=== PATIENT | male | born 1955 | race Caucasian/White ===

== ENCOUNTER → 2024-08-08 10:20 | Outpatient (REF) | payer MEDICARE, OTHER, SELFPAY | LOC: RAD 10:20 | PROVIDERS: ATTENDING PHYSICIAN Nurse Practitioner Family; FAMILY PHYSICIAN Internal Medicine | DX: F17.210 Nicotine dependence, cigarettes, uncomplicated (principal) | CPT/HCPCS: 71271 ==

== ENCOUNTER 2024-11-16 04:52 | Observation (INO) | payer MEDICARE, OTHER, SELFPAY ==
[2024-11-15 21:40] VITALS: BP 152/91
[2024-11-15 22:10] LABS: % Basophils 0.4 % (0-2); % Eosinophils 0.5 % (0-6); % Immature Granulocytes 0.7 % (0-0.5); % Lymphocytes 12.4 % (20.5-51.1); % Monocytes 7.5 % (1.7-9.3); % Neutrophils 78.5 % (42.2-75.2); Absolute Immature Granulocytes 0.1 10^3/uL (0-0.05); Absolute Monocytes 0.6 10^3/uL (0.1-0.6); Absolute Neutrophils 6.5 10^3/uL (1.4-6.5); Hematocrit 45.2 % (39.0-52.0); Hemoglobin 15.3 g/dL (13.0-18.0); Mean Corp Hgb Conc. 33.8 g/dL (33.0-37.0); Mean Corpuscular Hgb 31.5 pg (27.0-31.0); Mean Corpuscular Volume 93.2 fL (80.0-94.0); Mean Platelet Volume 8.8 fL (7.4-10.4); Nucleated Red Blood Cells % 0 % (-); Platelet Count 174 10^3/uL (130-400); Red Blood Cell Count 4.85 10^6/uL (4.70-6.10); Red Cell Dist. Width 13.3 % (11.5-14.5); White Blood Cell Count 8.2 10^3/uL (4.8-10.8)
[2024-11-15 22:23] LABS: ALT (SGPT) 25 U/L (0-50); AST (SGOT) 24 U/L (17-59); Albumin 4.1 g/dl (3.5-5.0); Alkaline Phosphatase 102 U/L (38-126); Blood Urea Nitrogen 19 mg/dl (9-20); COVID-19 Antigen Negative (Negative); Calcium 9.1 mg/dl (8.4-10.2); Carbon Dioxide 28 mmol/L (22-30); Chloride 103 mmol/L (98-107); Glucose 104 mg/dl (70-99); Potassium 4.2 mmol/L (3.5-5.1); Sodium 137 mmol/L (135-145); Total Bilirubin 0.7 mg/dl (0.2-1.3); Total Protein 6.5 g/dl (6.3-8.2); eGFR > 60.00
[2024-11-15 22:53] VITALS: BMI 24.4
[2024-11-15] MEDS: XOPENEX 1.25 MG INHALANT SOLUTION INH (23:10)
[2024-11-15 23:13] VITALS: BP 123/80
[2024-11-16] VITALS (9 sets, daily range): BP systolic 120–143; BP diastolic 60–89; BMI 23.9
[2024-11-16] MEDS: XOPENEX 1.25 MG INHALANT SOLUTION INH ×3 (01:06→14:07)
[2024-11-16] MEDS: ATROVENT NEBULES 0.5 MG INH (01:06)
[2024-11-16] MEDS: SOLU-MEDROL PF 125 MG IV (01:06)
--- NOTE | 2024-11-16 01:25 | ED.GENMED ---
History of Present Illness
General
Chief Complaint: Breathing Problem
Source: patient
Exam Limitations: none
Time Seen by Provider: 11/16/24 00:20
Nursing documentation reviewed up to this point in time: agreed with
History of Present Illness
History of Present Illness:
68-year-old male with past medical history of COPD, hypertension, hyperlipidemia, atrial fibrillation, hypothyroidism who presents to the emergency department for evaluation of shortness of breath. Of note symptoms have been ongoing for over a
month�he was admitted at [facility] in mid October for influenza reportedly; he says he returned in late October was admitted for 5 days for pneumonia (discharged 11/02 per ). He says he left [place] on oxygen and has been wearing 2 to
3 L at home. He says over the past 2 weeks he has had increased shortness of breath and hacking cough productive of dark sputum. He says that his oxygen requirement has increased he is now on 4 L at home. Despite this his oxygen saturations have
been in the 88-90 range over the past few days. He has not had any fevers or chills. He has not had any swelling or pain in the legs. Denies any chest pain. Denies any GI symptoms. Denies any other complaints.
Past History
Past History
ED Past Medical History: COPD and Hypercholesterolemia
ED Past Surgical History: Orthopedic and Urological
Social History
Tobacco: Smoker
Personal:
Living: with family
Employment: Disabled
Family History
Family History: Negative Early CAD
Review of Systems
Review of Systems
All Other Systems: ROS reviewed and negative except as documented in HPI and ROS
Constitutional: Denies fever or chills
Respiratory: Reports cough and trouble breathing
Cardiac: Denies chest pain or palpitations
ABD/GI: Denies abdominal pain, nausea, vomiting or diarrhea
: Denies flank pain
Musculoskeletal: Denies edema, neck pain or back pain
Neurological: Denies headache
Phy Exam
Physical Exam
Physical Exam:
General: Awake, alert, oriented x3; no acute distress
Head: Normocephalic, atraumatic
Eyes: Conjunctiva normal, EOMI
Throat: Airway intact, handling secretions
Neck: Trachea midline, no JVD
Lungs: Patient has scattered wheezing bilaterally; tachypnea with respiratory rate mid to high 30s but no evidence of accessory muscle use; pulse ox 94% on 2 L nasal cannula
Heart: Regular rate and rhythm, no murmurs, gallops, or rubs
Abd: Soft, non distended, nontender
Neuro: No gross deficits
Extremities: No edema in extremities, equal pulses in all extremities
Scores
Heart Failure Risk
Heart Failure Risk Score: Not Applicable
Heart Score for Chest Pain Patients
STEMI patient?: Not applicable
Withdrawal Assessment of Alcohol
Withdrawal Assessment Completed?: Not applicable
Sepsis
Sepsis Screening
Sepsis Assessment: Sepsis Ruled Out
Sepsis Screen
Sepsis Screen: Sepsis Ruled Out
Date: 11/16/24
Time: 07:14
Course
Orders/Labs/Results
Orders:
Orders
11/15/24 21:39
EKG [Electrocardiogram (*1)] Stat
Reason for Study: Shortness of Breath
EKG- Treatment ONCE
11/15/24 21:42
Cardiac Monitoring- Treatment ONCE
CR Chest - 2 Views Urgent
Comment:
Reason For Exam: respiratory distress
O2 Therapy [RESP] Urgent
Titrate/Wean O2 to maintain O2 sat greater than (%): 93
Special Instructions: TO MAINTAIN CONTINUOUS O2 SATS >/= 93%
Pulse Ox/cont/shift [RESP] Urgent
Quantity: 1
Special Instructions: continuous pulse ox
11/15/24 21:56
COVID-19 Antigen Urgent
Source: Nasal Swab
Complete Blood Count/With Diff Urgent
Comprehensive Metabolic Panel Urgent
INF RAPID [Influenza A+B Rapid Molecular] Urgent
PATRICE Source: Nasal Swab
Specimen Description:
11/15/24 23:08
Levalbuterol [Xopenex 1.25 mg Inhalant Solution] 1.25 mg .ROUTE .STK-MED ONE
11/15/24 23:09
Levalbuterol [Xopenex 1.25 mg Inhalant Solution] 1.25 mg INH R NOW STA
11/16/24 00:54
CT Chest PE Study Urgent
Comment:
Reason For Exam: worsening SOB
Ipratropium Nebs [Atrovent Nebules] 0.5 mg INH R NOW STA
Levalbuterol [Xopenex 1.25 mg Inhalant Solution] 1.25 mg INH R NOW STA
MethylPREDNISolone PF [Solu-Medrol Pf] 125 mg IV NOW STA
11/16/24 04:29
Admit/Transfer Patient As Directed
Co-Sign Provider:
Level of Care: Observation services
Assign to:: Medical/Surgical
Physician / Group: hospitalist
Diagnosis: COPD exacerbation
11/16/24 04:30
Code Status As Directed
Resuscitation Status: Full Code
PRN Pain Medication Management As Directed
May give lesser potent ordered pain med per pt: Yes
preference::
Protocol:: Medication orders for pain may be administered in a
manner that supports deferring to patient preference
when the pt is:
- Requesting an ordered lesser potent pain medication.
Least to most potent pain medications are defined
as: acetaminophen < NSAID < tramadol < opioids
(morphine, oxycodone, hydromorphone).
- Requesting a lesser dose of the same medication IF
ORDERED.
- Requesting a less intrusive route of administration
if both routes are prescribed by the provider (PO <
IV).
11/16/24 05:03
Guaifenesin [Mucinex] 600 mg PO BID PRN
Ipratropium/Albuterol Sulfate [Duoneb] 3 ml INH R Q4HPRN PRN
11/16/24 05:03
Activity As Directed
Activity Level: As Tolerated
Intake/ Output As Directed
Frequency: Per unit guidelines
Vital Signs As Directed
Frequency: Per unit guidelines
Copd Education [RESP] Routine
O2 Therapy [RESP] Routine
Nasal Cannula Liter Flow: 4 LPM
Titrate/Wean O2 to maintain O2 sat greater than (%): 93
Special Instructions: adjust, if necessary, to avoid hyperoxia in CO2 retainers.
Use High Flow O2 if necessary
DX Deep Vein Thrombosis Video Routine
11/16/24 05:33
Basic Metabolic Panel IN AM
11/16/24 05:34
Complete Blood Count/With Diff IN AM
11/16/24 Breakfast
Regular
At Your Request: Full Participation
Azithromycin 500 mg/250 ml [Zithromax Infusion] 500 mg in 250 ml IV Q24H
11/16/24 08:00
Aspirin 325 mg PO DAILY
Budesonide [Pulmicort] 0.5 mg INH R BID
Diltiazem Extended Release [Cardizem Cd] 240 mg PO DAILY
Ipratropium/Albuterol Sulfate [Duoneb] 3 ml INH R QID
Prednisone [Deltasone] 60 mg PO DAILY
11/16/24 18:00
Enoxaparin Sodium [Lovenox] 40 mg SC QPM
Abnormal Lab Results
11/15/24
21:56
MCH 31.5 H pg
(27.0-31.0)
Abs Immat Gran (auto) 0.1 H 10^3/uL
(0-0.05)
Absolute Lymphs (auto) 1.0 L 10^3/uL
(1.2-3.4)
Immature Gran % 0.7 H %
(0-0.5)
Neutrophils % 78.5 H %
(42.2-75.2)
Lymphocytes % 12.4 L %
(20.5-51.1)
Glucose 104 H mg/dl
(70-99)
11/15/24 21:56
11/15/24 21:56
Vital Signs
Initial and Last Documented VS:
Initial Vital Signs
Temp Pulse Resp BP Pulse Ox
37.5 C 116 24 152/91 95
11/15/24 21:40 11/15/24 21:40 11/15/24 21:40 11/15/24 21:40 11/15/24 21:40
Last Documented Vital Signs
Temp Pulse Resp BP Pulse Ox
36.7 C 80 18 143/79 97
11/16/24 06:04 11/16/24 06:04 11/16/24 06:04 11/16/24 06:04 11/16/24 06:04
MDM/Problems Addressed
Differential Diagnosis Includes:
Pneumonia, COPD exacerbation, PE
MDM/Problems Addressed:
68-year-old male presents with worsening shortness of breath and cough in the setting of recent respiratory issues over the past month requiring admission x 2 at [place]. He also reports increased oxygen requirement home although here he is
saturating appropriately on 2 L nasal cannula. He has mild hypertension, tachycardia, tachypnea but afebrile. Oxygen saturation appropriate on 2 L nasal cannula. Physical exam is as noted�he does have some wheezing scattered throughout. He had
labs sent in triage including a CBC and CMP which were unremarkable. His COVID and flu swabs were negative. His chest x-ray reviewed by me shows no acute disease. He was given a leave albuterol treatment (he is allergic to albuterol) prior to my
assessment denies significant improvement. He does still have wheezing as above. Will send for a CT PE to rule out PE and to rule out occult pneumonia. Will treat with steroid and additional leave albuterol as well as ipratropium. Will reassess
after the above. At this point clinical suspicion is for COPD exacerbation.
CT reviewed by me no clear pneumonia, no PE. Patient still with wheezing and tachypnea, suspect acute COPD exacerbation. Admit for continued management�case discussed with hospitalist.
Chronic conditions affecting care:
COPD
Acute Exacerbation and/or Progression of Chronic Illness:
Acutely hypertensive resolved without intervention continue to monitor but no additional antihypertensives indicated at this point
Acute Exacerbation and/or Progression of Chronic Illness: HTN
*Radiology
Radiology exam reviewed: preliminary read by ED provider and radiology read reviewed
*Pulse Oximetry
Patient hypoxic: yes
*EKG
Interpreted by ED Provider?: Yes
Heart Rate: 106
Rate: tachycardiac
Rhythm: sinus
[place]: normal axis
Interval: normal interval
QRS Pattern: right bundle branch block
*Critical Care Note
Total Time (30-74mins, 75-104mins- exclusive of procedures): Not Applicable
Data Reviewed
Source: patient, records and spouse
Patient Management
Discussion with other providers: Hospitalist (Discussed with hospitalist)
Escalation/DeEscalation of care consider admission/obs:
Admission indicated
ED Attending Note
-
Portions of this chart may have been created with voice recognition software.� Occasional wrong word or��sound alike� substitutions may have occurred due to the inherent limitations of voice recognition software.
Discharge Plan
Departure
Patient Disposition: Admit
Date of Disposition: 11/16/24
Time of Disposition: 03:15
Admit to doctor: Arsen
Presentation/result/management discussed w/ accepting MD/DO: Hospitalist
Discharge Problem:
COPD exacerbation
Interventions
Interventions:
*Risk Screen - Suicide Last Done: 11/16/24 06:03
*General Assessment Last Done: 11/16/24 06:14
*Neglect/Abuse Screening Last Done: 11/15/24 21:40
ED- Fall Risk Assessment Last Done: 11/15/24 22:55
*ED COVID-19 Vaccine History Last Done: 11/16/24 06:03
*Nursing Disposition Last Done: 11/16/24 06:14
ED- Cardiac Assessment Last Done: 11/15/24 22:54
ED- Pulmonary Assessment Last Done: 11/15/24 22:54
Discharge Date and Time
Discharge Date/Time: 11/16/24 06:15
--- NOTE | 2024-11-16 04:21 | HPS.HSE ---
Family Physician
-
Family Physician: Blair Anderson
Chief Complaint
-
Cough, shortness of breath
History of Present Illness
This is a 68-year-old with past medical history of hypertension, longstanding COPD not on home O2 who presents to the emergency department with 2 weeks of worsening cough and shortness of breath.
Patient reported earlier in October and was admitted with influenza and treated with Tamiflu. After finishing the treatment patient returned to the emergency department at [facility] and was diagnosed with a post viral pneumonia.
Ultimately was discharged at the end of October to finish course of cefdinir. He was also placed on 2 L home O2. Patient reports he has not been at home on home O2 up until that point. Over the next 2 weeks he reports using 2 to 3 L at home and
despite this has increased shortness of breath and hacking cough productive of dark sputum. Denies fevers, chills, nausea or vomiting. He says that his oxygen requirement has increased he is now on 4 L at home with saturation in the 88-90 range
over the past few days. Denies any pleuritic chest pain, denies leg swelling, orthopnea or pnd.
In the emergency department he was afebrile, blood pressure was 140/80 with a pulse of 84 satting 94% on 3 L. ECG shows sinus tachycardia at 106. COVID test was negative, influenza test was negative. CT was negative for PE. Was consistent with
bronchitis and emphysema. No acute infiltrates or consolidations noted. No pulmonary edema noted. The patient CBC was completely unremarkable. Similarly electrolytes BUN/creatinine were normal.
Medical History
Past Medical History
Past Medical History: Reports COPD and HTN
Past Surgical History: Reports Other
Social History
Tobacco: Smoker
Alcohol: Occasional
Drug: None
Personal: Partner
Living: With Family
Family History
Family History: Not pertinent
Allergies / Home Medications
Allergies reflects when Allergies were last updated in [employer].
Home Medications with original date entered in [employer]
Allergy/Medication List:
Allergies
Allergy/AdvReac Type Severity Reaction Status Date / Time
albuterol Allergy closes Verified 11/15/24 21:40
windpipe
Home Medications
guaifenesin 600 mg tablet, extended release 12 hr (Mucus Relief ER) 600 mg PO BID PRN Congestion 07/15/18
diltiazem HCl 240 mg capsule,extended release 24 hr 240 mg PO DAILY atrial fibrillation 08/23/23
aspirin 325 mg tablet 325 mg PO DAILY 11/15/24
Review of Systems
-
History Source: Patient
Constitutional: Reports No Symptoms
EENT: Reports No Symptoms
Respiratory: Reports Cough and Trouble Breathing
Cardiac: Reports No Symptoms
Abdomen/GI: Reports No Symptoms
: Reports No Symptoms
Musculoskeletal: Reports No Symptoms
Skin: Reports No Symptoms
Neurological: Reports No Symptoms
Endocrine: Reports No Symptoms
Hematologic/Lymphatic: Reports No Symptoms
Psych: Reports No Symptoms
Physical Exam
Vital Signs
Vital Signs
Temp Pulse Resp BP Pulse Ox
98.1 F 84 22 140/82 94
11/16/24 03:23 11/16/24 03:30 11/16/24 03:30 11/16/24 03:19 11/16/24 03:30
Physical Exam
General: Well Developed, Well Nourished, No Apparent Distress and Comfortable
HEENT: NormoCephalic, Anicteric, Moist mucous membranes and Atraumatic
Respiratory: Wheezes
Cardiac: S1/S2 and Regular Rhythm
Breast: Deferred by me
GI: Soft, Non Tender, Non Distended and Normal Bowel Sounds
Rectal: Deferred by Provider
Genito-urinary: Deferred by me
Musculoskeletal: No Clubbing, No Cyanosis and No Edema
Skin: Warm and Dry; No Rash
Neuro: AO x 3 and Nonfocal/grossly intact
Hematologic/Lymphatic: No Lymphadenopathy
Psych: Calm
Laboratory Results
-
11/15/24 21:56
11/15/24 21:56
Laboratory Results
Total Bilirubin 0.7 mg/dl (0.2-1.3) 11/15/24 21:56
AST 24 U/L (17-59) 11/15/24 21:56
ALT 25 U/L (0-50) 11/15/24 21:56
Alkaline Phosphatase 102 U/L (38-126) 11/15/24 21:56
Data Reviewed
-
CT Scan: Report Reviewed by me
Medical Tests (Nuc Med, Echo, EKG etc): Image Personally Visualized and interpreted
Lab Data: Labs Reviewed by me
Old Records: Reviewed
Impression/Plan
-
IMPRESSION:
68-year-old with history of COPD recently admitted for influenza A status post treatment followed by admission for post influenza pneumonia status post treatment and a course of cefdinir and will now presents to the emergency department with 2 weeks
of ongoing dyspnea on exertion, shortness of breath, cough and hypoxia after his discharge from the hospital. No signs of CHF or PE. Suspect poorly treated COPD at baseline. No acute infiltrates to suggest a pneumonia. Patient's cough is
productive but that he has recently been on antibiotics and doubt any benefit for additional antibiotics for COPD exacerbation but we will treat per standard protocol.
PLAN:
1. COPD exacerbation w/ hypoxia
- admit to med/surg
- azithromycin 500mg iv daily
- prednisone 60mg daily
- levalbuterol tid, and ipratropium prn
- start patient on inh budesonide q 12
- o2 to maintain sat > 90%
- supportive measures
- continue dilt for h/o a flutter
DVT PPX - lovenox sq
Code status - full code
[2024-11-16 05:40] LABS: % Basophils 0.1 % (0-2); % Eosinophils 0.1 % (0-6); % Immature Granulocytes 0.7 % (0-0.5); % Lymphocytes 5.7 % (20.5-51.1); % Monocytes 2.1 % (1.7-9.3); % Neutrophils 91.3 % (42.2-75.2); Absolute Immature Granulocytes 0.1 10^3/uL (0-0.05); Absolute Lymphocytes 0.4 10^3/uL (1.2-3.4); Absolute Monocytes 0.2 10^3/uL (0.1-0.6); Absolute Neutrophils 6.6 10^3/uL (1.4-6.5); Hematocrit 41.2 % (39.0-52.0); Mean Corpuscular Hgb 31.9 pg (27.0-31.0); Mean Corpuscular Volume 93.8 fL (80.0-94.0); Mean Platelet Volume 8.8 fL (7.4-10.4); Nucleated Red Blood Cells % 0 % (-); Platelet Count 141 10^3/uL (130-400); Red Blood Cell Count 4.39 10^6/uL (4.70-6.10); Red Cell Dist. Width 13.2 % (11.5-14.5); White Blood Cell Count 7.2 10^3/uL (4.8-10.8)
[2024-11-16 06:11] LABS: Blood Urea Nitrogen 17 mg/dl (9-20); Calcium 8.4 mg/dl (8.4-10.2); Carbon Dioxide 23 mmol/L (22-30); Chloride 105 mmol/L (98-107); Estimated Creatinine Clearance 84 ml/min; Glucose 153 mg/dl (70-99); Potassium 4.3 mmol/L (3.5-5.1); Sodium 137 mmol/L (135-145); eGFR > 60.00
[2024-11-16] MEDS: ZITHROMAX INFUSION 250 IV (06:31)
[2024-11-16] MEDS: SPIRIVA RESPIMAT 2.5 MCG 2 PUFF INH (08:07)
[2024-11-16] MEDS: PULMICORT 0.5 MG INH (08:07)
--- NOTE | 2024-11-16 08:30 | VNURNOTE ---
Chart reviewed. [facility] PT, RIM BUSTER. Will continue to follow hospital course and DC plans.
[2024-11-16] MEDS: CARDIZEM CD 240 MG PO (08:58)
[2024-11-16] MEDS: ASPIRIN 325 MG PO (09:00)
[2024-11-16] MEDS: DELTASONE 60 MG PO (09:00)
[2024-11-16 09:30] LABS: Procalcitonin < 0.05 ng/ml (0.0-0.25)
--- NOTE | 2024-11-16 11:52 | W.PN.HOSP.TC ---
Addendum entered and electronically signed by Blaze Stratton MD 11/17/24 15:31:
[id number]
Original Note:
Today's Communication/Plan
-
prednisone taper
o2 supplementation
f/u pulmonary, pcp outpatient
breztri on discharge
Assessment / Plan
Assessment / Plan
General: Well Developed, Well Nourished, No Apparent Distress and Comfortable
HEENT: NormoCephalic, Anicteric, Moist mucous membranes and Atraumatic
Respiratory: mild expiratory wheezing, states this is chronic
Cardiac: S1/S2 and Regular Rhythm
Breast: Deferred by me
GI: Soft, Non Tender, Non Distended and Normal Bowel Sounds
Rectal: Deferred by Provider
Genito-urinary: Deferred by me
Musculoskeletal: No Clubbing, No Cyanosis and No Edema
Skin: Warm and Dry; No Rash
Neuro: AO x 3 and Nonfocal/grossly intact
Hematologic/Lymphatic: No Lymphadenopathy
Psych: Calm
# COPD exacerbation
#Chronic Hypoxia
#Bronchitis
-On 3L, states this is baseline
-Continue Breztri at home, patient states allergic to albuterol
-Improved
-Prednisone taper; 50mg and drop by 10mg every 3 days; continue on 10mg daily until planned pulmonary appt (end november)
-Azithromycin course
-Maintain O2>89%
#Aflutter
-cont diltiazem
-unclear why on 650mg bid ASA, may be due to this - continue this and f/u with pcp
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
-f/u pulmonary outpatient, may benefit from direct visualization
#?CAD
-f/u pcp for further testing
Code status - full code
More than 30 minutes spent in discharge including
Final examination of the patient
Summarizing hospital stay
Instructions for continuing care to all relevant caregivers
Preparation of discharge records, prescriptions, and referral forms
Total time spent (36 in minutes):
Anticipated Discharge: Today
Subjective/Interval History
-
Date of Service: November 16, 2024
at baseline, 3L
Objective Data
-
Labs:
Laboratory Results
11/16/24 11/16/24
05:33 05:34
WBC 7.2
Hgb 14.0
Hct 41.2
Plt Count 141
Sodium 137
Potassium 4.3
Chloride 105
Carbon Dioxide 23
BUN 17
Creatinine 0.9
Glucose 153 H
Calcium 8.4
Vital Signs:
Vital Signs
Temp Pulse Resp BP Pulse Ox
97.8 F 77 16 121/77 100
11/16/24 08:00 11/16/24 08:13 11/16/24 08:13 11/16/24 08:00 11/16/24 08:13
Review of Systems
-
History Source: Patient
All other systems: Not reviewed unless documented
Data Reviewed
-
Diagnostic Radiology: Report Reviewed by me
CT Scan: Report Reviewed by me
Labs: Labs Reviewed by me
--- NOTE | 2024-11-16 12:04 | W.DS.TRANS ---
DC Summary - [facility]
-
Discharge Instructions:
Discharge Diagnosis/Procedures COPD exacerbation
Chronic Hypoxia
Diet Low Cholesterol,Low Fat
Activity As tolerated
Instructions:
Stand-Alone Forms:
Changes to Home Medications: Yes
Discharge Medications:
DC Medications w/original date entered in [employer]
guaifenesin 600 mg tablet, extended release 12 hr (Mucus Relief ER) 600 mg PO BIDPRN PRN Congestion 07/15/18
diltiazem HCl 240 mg capsule,extended release 24 hr 240 mg PO DAILY atrial fibrillation 08/23/23
aspirin 325 mg tablet 650 mg (2 x 325 mg) PO Q12H #14 tabs 11/16/24
azithromycin 500 mg tablet 500 mg PO DAILY 5 days #5 tabs 11/16/24
budesonide 160 mcg-glycopyr 9 mcg-formot 4.8 mcg/actuation HFA inhaler (Breztri Aerosphere) 2 inh inhalation R BID 11/16/24
prednisone 10 mg tablet See Rx Instructions .Route .COMPLEX #60 tabs 11/16/24
Home Medication Changes
azithromycin 500 mg tablet 500 mg PO DAILY 5 days #5 tabs 11/16/24
budesonide 160 mcg-glycopyr 9 mcg-formot 4.8 mcg/actuation HFA inhaler (Breztri Aerosphere) 2 inh inhalation R BID 11/16/24
prednisone 10 mg tablet See Rx Instructions .Route .COMPLEX #60 tabs 11/16/24
Pending Results: No
--- NOTE | 2024-11-16 12:56 | CM ---
CM reviewed chart, patient seen bedside. Patient resides with his in a two level apartment, no steps to enter, 15 steps to bedroom. Patient has home O2 through [facility], baseline 2-3L, denies other DME. Patient current with [facility], denies SNF.
Patient PCP Blair Anderson, pharmacy [facility] or [facility]. Patient aware of discharge for today, BURR reviewed, refused to sign, placed in chart, patient provided with copy. Patient reports he will transport self home. CM will continue
to follow for all discharge planning needs.
Plan; home with [facility] , home O2 through [facility]
== END 2024-11-16 15:52 | disposition home health service (06) ==
LOC: 4 WEST ACU 04:52
PROVIDERS: Student in an Organized Health Care Education/Training Program; ADMITTING PHYSICIAN Internal Medicine; ATTENDING PHYSICIAN Internal Medicine; EMERGENCY PHYSICIAN Emergency Medicine; FAMILY PHYSICIAN Internal Medicine
DX: J44.0 Chronic obstructive pulmonary disease with (acute) lower respiratory infection (principal); J44.1 Chronic obstructive pulmonary disease with (acute) exacerbation; R06.02 Shortness of breath; E78.00 Pure hypercholesterolemia, unspecified; F17.200 Nicotine dependence, unspecified, uncomplicated; I10 Essential (primary) hypertension; E03.9 Hypothyroidism, unspecified; I48.91 Unspecified atrial fibrillation; R06.03 Acute respiratory distress; I45.10 Unspecified right bundle-branch block; R09.02 Hypoxemia; R00.0 Tachycardia, unspecified; R06.09 Other forms of dyspnea; K80.20 Calculus of gallbladder without cholecystitis without obstruction; I25.10 Atherosclerotic heart disease of native coronary artery without angina pectoris; I48.92 Unspecified atrial flutter; J39.8 Other specified diseases of upper respiratory tract; Z99.81 Dependence on supplemental oxygen; Z11.52 Encounter for screening for COVID-19; Z88.8 Allergy status to other drugs, medicaments and biological substances; Z79.51 Long term (current) use of inhaled steroids
CPT/HCPCS: 71046; 71275; 80048; 80053; 84145; 85025; 87502; 87811; 93005; 94640; 96374; 99285; G0378; Q9967

== ENCOUNTER → 2025-03-29 13:53 | Outpatient (REF) | payer MEDICARE, OTHER, SELFPAY | LOC: RAD 13:53 | PROVIDERS: ATTENDING PHYSICIAN Nurse Practitioner Family; FAMILY PHYSICIAN Internal Medicine | DX: R91.8 Other nonspecific abnormal finding of lung field (principal) | CPT/HCPCS: 71250 ==

== ENCOUNTER → 2025-07-20 10:24 | Outpatient (REF) | payer MEDICARE, OTHER, SELFPAY | LOC: RAD 10:24 | PROVIDERS: ATTENDING PHYSICIAN Nurse Practitioner Family; FAMILY PHYSICIAN Internal Medicine | DX: R91.8 Other nonspecific abnormal finding of lung field (principal) | CPT/HCPCS: 71250 ==